=== PATIENT | male | born 1985 | race Caucasian/White ===

== ENCOUNTER 2019-10-15 10:39 | Emergency (ER) | payer OTHER, SELFPAY ==
[2019-10-15 10:39] VITALS: BP 133/84; PULSE 79; RESP 16; TEMP 36.9; O2SAT 96; BMI 24.0
--- NOTE | 2019-10-15 10:49 | ED.RN ---
PT ADMITS TO SNORTING HEROIN THIS AM AROUND 0830
--- NOTE | 2019-10-15 10:52 | RAD_ITS ---
STUDY: X-RAY CHEST REASON FOR EXAM: Male, 34 years old. OVERDOSE, BECAME UNRESPONSIVE AND GIVEN NARCAN TECHNIQUE: Single AP portable view of the chest. COMPARISON: Comparison is made with prior study dated 05/18/2013. FINDINGS: EKG electrodes are seen. The lungs are clear and expanded. There is no demonstrated pleural abnormality. Normal size heart. Normal mediastinum and nazanin. Normal visualized pulmonary arteries. Normal visualized aortic arch and descending thoracic aorta. Normal visualized thoracic spine. Normal visualized ribs, clavicles, and shoulders. There is no demonstrated abnormality of the visualized soft tissue structures of the upper abdomen. RAD/Chest 1 View (Portable) IMPRESSION: Normal x-ray examination of the chest. Electronically Signed: Cody Griffin, at 11:18 EDT , Service support ,
--- NOTE | 2019-10-15 10:57 | ED.RN ---
PER [facility] AT [facility], PT NEEDS DRUG TESTED
--- NOTE | 2019-10-15 11:42 | ED.DCSUM_ITS ---
- ER Visit Summary Date of Service: 10/15/19 Chief Complaint: Heroin overdose History of Present Illness: The patient is a 34 M who presents with heroin overdose that occurred today. Patient states he snorted heroin today at work at approximately 0830. Patient became unresponsive. EMS administered Narcan. Patient became awake and alert after this. Patient states he has a history of opiate dependence and is on Suboxone. Patient denies any fevers or chills. Patient denies any chest pain or shortness of breath. Patient denies any nausea or vomiting. Patient denies any other symptoms. Physical Examination: Vital signs are stable. Patient is afebrile. Patient is in no acute distress. Oral mucosa is pink and moist. Neck is supple. Trachea is midline. There is no JVD noted. Heart was regular rate and rhythm. Lungs are clear and equal bilaterally. Abdomen is soft. Bowel sounds are normal. There is no tenderness. There is no rebound or guarding noted. Skin is warm dry. Cranial nerves II through XII are intact. There are no focal motor or sensory deficits noted. Extremities are intact. There is no calf tenderness or edema. Test Results: Chest x-ray was obtained. There is no acute cardiopulmonary process. This was interpreted by the radiologist and reviewed by myself. Emergency Department Course and Treatment: Patient was observed here in the emergency department. Patient remained awake and alert. Patient was instructed to follow-up with his primary care physician or [facility] in 5 to 7 days. Patient understood and was agreeable with the plan. All questions were answ ered. Disposition: Discharge home Impression: Heroin overdose This note was generated with [employer] dictation software. It may contain incorrect words, spelling, and punctuation that were not noted in review of the chart prior to signing ED Disposition - Plan for ED Patient: Disposition: Home or Assisted Living Diagnosis: Heroin overdose Instructions: ED Overdose Opiate Referrals: [facility] [GROUP OF PHYSICIANS] - 5-[address] [facility] [STAFF PHYSICIAN] - 5-7 Days
[2019-10-15 11:46] VITALS: BP 129/80; PULSE 67; RESP 14; O2SAT 95
[2019-10-15 12:05] VITALS: BP 115/75; PULSE 62; RESP 12; O2SAT 95
--- NOTE | 2019-10-15 12:28 | CM.ED ---
Social Work Consult: Substance Abuse Informant: Self-Referral Chief Complaint: Patient overdosed on Heroine this morning. Marital/Social History: Single. Engaged to [employer] for the past 4 years. Living Situation: Lives with Adriana dawkins. Support/Resources: History of substance abuse supports, no active community resources. we need to get back into it per Adriana. Education/Employment: Full-time at [employer]. Denies any issues with comprehension/understanding. Abuse Issues: Did not assess Substance Abuse/use: Reports history of Heroine abuse and have been clean for the past 2 years. Patient states to have been working a program but to have stopped that over the past year. Adriana states he needs to start again. Patient denies any other substance abuse/use. Risk to Self/Others: Denies suicidal thoughts/plans/intent or history of. Assessment: Met with patient in room. Introduced self and social science manager role. Patient open to speaking with this social science manager. Patient presenting as tired and sleepy as evidenced by continuing to close eyes and defer to Adriana for answering questions. Patient states to want Adriana to remain in room while speaking with this social science manager. Patient is open to substance abuse resources. This social science manager encouraging patient to begin substance abuse program/supports and to continue with working the program to maintain sobriety. Patient voices plan and intent to establish with local substance abuse services. This social science manager providing patient with substance abuse resources. Patient voicing no further needs/concerns. Support provided. PLAN: Discharge to home with significant other. Linette VILLEGAS, ALEXSANDER
[2019-10-15 13:22] VITALS: BP 106/68; PULSE 40; RESP 11; O2SAT 94
[2019-10-15] MEDS: Naloxone 2 MG/2 ML Syringe IV (13:31)
[2019-10-15 14:14] VITALS: BP 131/77; PULSE 51; RESP 15; O2SAT 99
--- NOTE | 2019-10-15 14:26 | ED.RN ---
[facility]. PT IS LETHARGIC. T VOICED FRUSTRATION AND WAS UPSET HE WAS GIVEN NARCAN. NARCAN WAS EFFECTIVE AFTER ADMINISTRATION.
[2019-10-15 15:34] VITALS: BP 140/80; PULSE 60; RESP 18; O2SAT 99
== END 2019-10-15 15:35 | disposition home or self-care (01) ==
PROVIDERS: Emergency Provider Emergency Medicine
DX: T40.1X1A Poisoning by heroin, accidental (unintentional), initial encounter (principal); F11.20 Opioid dependence, uncomplicated
CPT/HCPCS: 71045; 99284; J7030

== ENCOUNTER 2024-03-13 13:42 | Inpatient (IN) | payer SELFPAY ==
[2024-03-13] VITALS (7 sets, daily range): BP systolic 108–132; BP diastolic 57–100; PULSE 55–70; RESP 15–20; TEMP 36.6–37.1; O2SAT 96–99; BMI 21.4; BMI 21.3
[2024-03-13] MEDS: Ondansetron ODT 4 MG Tablet PO (14:35)
[2024-03-13] MEDS: cloNIDine HCl 0.1 MG Tablet PO (14:35)
[2024-03-13 14:48] LABS: Absolute Neutrophil Count 14.5 X10^3/uL (2.0-7.7); Basophil# 0.05 X10^3/uL; Basophil% 0.3 % (0-1); Eosinophil# 0.01 X10^3/uL; Eosinophils% 0.1 % (0-5); Hematocrit 49.3 % (40-54); Hemoglobin 17.6 g/dL (13.0-16.5); Lymphocyte % 10.6 % (19-41); Mean Corp Hgb Conc 35.7 g/dL (32-36); Mean Corpuscular Hgb 29.9 pg (27.0-32.0); Mean Corpuscular Volume 83.7 fL (80-94); Mean Platelet Vol. 9.3 fl (6.2-12.0); Monocyte% 3.5 % (0-10); NRBC Flagged by Analyzer 0 % (0-5); Neutrophil # 14.49 X10^3/uL (2.7-7.7); Platelet Count 362 K/mm3 (150-450); RBC Distribution Width SD 36.4 fl (35.1-43.9); Red Blood Count 5.89 M/mm3 (4.6-6.2)
[2024-03-13 15:16] LABS: Alcohol, Blood (Medical)-Serum < 3.0 mg/dL
[2024-03-13 15:20] LABS: ALB/GLOB Ratio 0.9 RATIO (0.9-2.4); AST(SGOT) 25 U/L (15-37); Alanine Aminotransfer ALT/SGPT 45 U/L (16-61); Albumin, Serum 4.2 g/dL (3.2-5.0); Alkaline Phosphatase 100 U/L (45-117); Anion Gap 7 (5-15); BUN 14 mg/dL (7-18); BUN/Creat Ratio 14.7 RATIO (10-20); Calcium,Total 10.6 mg/dL (8.5-10.1); Chloride 104 mmol/L (98-107); Creatinine, Serum 0.95 mg/dL (0.70-1.30); EST Glomerular Filtration Rate 93 mL/min (>60); Est Glom Filt Rate - Afr Amer 113 mL/min (>60); Estimated Creatinine Clearance 99.12 ml/min; Globulin 4.9 g/dL (2.2-4.2); Glucose 118 mg/dL (74-106); Protein, Total 9.1 g/dL (6.4-8.2); Sodium Level 138 mmol/L (136-145)
--- NOTE | 2024-03-13 15:26 | EX.ED.SAOD ---
HPI History of Present Illness Chief Complaint: Substance Abuse Narrative Narrative: Patient is a 39-year-old male with history of opioid/heroin abuse. Presenting for request of opioid withdrawal/detox. Patient states he last used Saturday morning. He states he uses about a gram a day. States he uses both IV and snorts. He also admits to vaping and using THC products. He states he is using for least a year. He is currently complaining of having bodyaches, feeling freezing, nauseous, cramps and is yawning. He is asking for symptoms to help with his withdrawal. Denies any alcohol use. No other complaints or concerns at this time. Does report a history of hepatitis C. PFSH PFS Medical History IV drug abuse Allergy/AdvReac Type Severity Reaction Status Date / Time No Known Allergies Allergy Verified 03/13/24 16:49 Social History housing: house Smoking Status: Current every day smoker tobacco type: e-cigarettes ROS ROS ED Constitutional Constitutional ED: Reports chills and sweats; Denies fever(s) Cardiovascular Cardiovascular: Denies chest pain Respiratory/Chest Respiratory/Chest: Denies cough or dyspnea Gastrointestinal Gastrointestinal: Reports abdominal pain and nausea Musculoskeletal Musculoskeletal: Reports myalgias Integumentary Denies rash Psychiatric Psychiatric: Reports anxiety EXAM Physical Exam Const Vital Signs: 03/13/24 13:42 03/13/24 14:37 03/13/24 15:00 Temperature 97.9 F Temperature Source Temporal Pulse Rate 70 60 Respiratory Rate 18 Blood Pressure 132/100 H 114/81 H 119/79 Blood Pressure Mean 110 92 92 Pulse Ox 99 Oxygen Delivery Method Room Air 03/13/24 15:05 Temperature 98 F Temperature Source Pulse Rate 60 Respiratory Rate 18 Blood Pressure 119/79 Blood Pressure Mean 92 Pulse Ox 99 Oxygen Delivery Method Positive well nourished and well developed General Appearance ED: well developed and NAD HEENT Reports moist mucous membranes Eyes PERRL General Eye ED: Negative for scleral icterus Neck supple Chest Wall inspection of chest normal Resp normal respiratory effort and clear to auscultation bilaterally Cardio regular rate and regular rhythm Neuro oriented x3 Sensorium / Orientation: alert Motor Exam: Negative for general weakness Psych mental status grossly normal Mood & Affect: anxious Skin Lesions: no lesions Rashes: no rashes MDM MDM MDM Narrative Medical decision making narrative: Patient evaluated for request of heroin detox. Patient does appear to be withdrawing. Last used 2 days ago. Will obtain medical clearance and speak with hospitalist, Dr. Reynolds for admission. Patient is noted to have a leukocytosis of uncertain significance. Is hemodynamically stable in the emergency room. Will be monitored by hospitalist. Patient agreeable with admission. Lab Data Attestation: I reviewed the patient's lab results. Labs: Laboratory Results - last 24 hr 03/13/24 03/13/24 14:00 15:29 WBC 17.0 H RBC 5.89 Hgb 17.6 H Hct 49.3 MCV 83.7 MCH 29.9 MCHC 35.7 RDW Std Deviation 36.4 RDW Coeff of Ant 12.0 Plt Count 362 MPV 9.3 Immature Gran % (Auto) 0.500 Neut % (Auto) 85.0 H Lymph % (Auto) 10.6 L Green % (Auto) 3.5 Eos % (Auto) 0.1 Baso % (Auto) 0.3 Absolute Neuts (auto) 14.5 H Absolute Lymphs (auto) 1.80 Nucleated RBC % 0 Sodium 138 Potassium 4.0 Chloride 104 Carbon Dioxide 27.0 Anion Gap 7 BUN 14 Creatinine 0.95 Estim Creat Clear Calc 99.12 Est GFR (MDRD) Af Amer 113 Est GFR (MDRD) Non-Af 93 BUN/Creatinine Ratio 14.7 Glucose 118 H Calcium 10.6 H Total Bilirubin 0.60 AST 25 ALT 45 Alkaline Phosphatase 100 Total Protein 9.1 H Albumin 4.2 Globulin 4.9 H Albumin/Globulin Ratio 0.9 Urine Opiates Screen NEGATIVE Urine Methadone Screen NEGATIVE Ur Barbiturates Screen NEGATIVE Ur Phencyclidine Scrn NEGATIVE Ur Amphetamines Screen NEGATIVE MDMA (Ecstasy) Screen NEGATIVE U Benzodiazepines Scrn NEGATIVE Urine Cocaine Screen NEGATIVE U Cannabinoids Screen POSITIVE H Ur Drug Screen Comment Ethyl Alcohol < 3.0 Discharge Plan Dx/Rx/DC Orders Clinical Impression: Opioid use disorder Disposition Disposition: Acute Care Hospital [facility] Discharge Date/Time: 03/13/24 16:05
--- NOTE | 2024-03-13 15:37 | HP.PCM.HOS_ITS ---
HPI - General General Date of Admission: 03/13/24 Date of Service: 03/13/24 Chief Complaint: Opioid detox HPI Narrative CLYDE TREVIZO, is a 39 M with history of opioid use disorder presented [facility] ED 03/09/2024 for opioid detox. In the ED patient with white count of 17 and hemoglobin of 17 and was just generally feeling unwell and already in withdrawal. Given clonidine and ondansetron and hospitalist contacted for admission. Patient evaluated bedside. He reports using fentanyl and heroin off and on for years with his last use 2 days ago. Since that time he has been having abdominal discomfort, diarrhea, chills, nausea and feels generally unwell. Does note that he vapes and patient additionally uses THC, denies any amphetamines or cocaine, denies regular alcohol use. Patient received clonidine and Zofran in the ED with only mild improvement and reports he is just very uncomfortable. Reports a little bit of cough with phlegm but denies any other specific symptoms concerning for underlying infectious etiology. [facility] Medical History IV drug abuse Allergy/AdvReac Type Severity Reaction Status Date / Time ketchup AdvReac Other Verified 03/13/24 13:42 Social History (Updated 03/13/24 @ 13:51 by Kiley Maza) housing: house Smoking Status: Current every day smoker tobacco type: cigarettes ROS ROS Narrative General: Chills HENT: Headaches EYES: Denies changes in vision Resp: Little bit of a cough Cardiac: Denies chest pain GI: Diarrhea and abdominal cramping : Some decreased urination and decreased p.o. intake Extremity: Denies swelling MSK: Denies weakness, some generalized aches Neuro: Denies any numbness/tingling Heme: Denies any bleeding or bruising Skin: Denies rashes Psychiatric: Feeling anxious Vital Signs Vital Signs Vital Signs: 03/13/24 13:42 03/13/24 14:37 03/13/24 15:00 Temperature 97.9 F Temperature Source Temporal Pulse Rate 70 60 Respiratory Rate 18 Blood Pressure 132/100 H 114/81 H 119/79 Blood Pressure Mean 110 92 92 Pulse Ox 99 Oxygen Delivery Method Room Air 03/13/24 15:05 Temperature 98 F Temperature Source Pulse Rate 60 Respiratory Rate 18 Blood Pressure 119/79 Blood Pressure Mean 92 Pulse Ox 99 Oxygen Delivery Method Weight Weight: 67.8 kg Body Mass Index (BMI) 21.4 Physical Exam Narrative General: Alert, oriented, under covers and appears uncomfortable HEENT: Atraumatic, normocephalic Eyes: Anicteric, normal conjunctiva, extraocular movements grossly intact Neck: Supple Respiratory: Clear to auscultation bilaterally, normal respiratory effort Cardiovascular: Regular rate GI: Soft, nontender, nondistended Extremities: No edema Musculoskeletal: Moving all extremities Neuro: No overt focal neurological deficits Skin: No rashes appreciated Psych: Overall cooperative but is anxious Results Lab / Micro Data 03/13/24 14:00 03/13/24 14:00 Labs: Laboratory Results - last 24 hr 03/13/24 14:00: WBC 17.0 H, RBC 5.89, Hgb 17.6 H, Hct 49.3, MCV 83.7, MCH 29.9, MCHC 35.7, RDW Std Deviation 36.4, RDW Coeff of Ant 12.0, Plt Count 362, MPV 9.3, Immature Gran % (Auto) 0.500, Neut % (Auto) 85.0 H, Lymph % (Auto) 10.6 L, [place] % (Auto) 3.5, Eos % (Auto) 0.1, Baso % (Auto) 0.3, Absolute Neuts (auto) 14.5 H, Absolute Lymphs (auto) 1.80, Nucleated RBC % 0, Sodium 138, Potassium 4.0, Chloride 104, Carbon Dioxide 27.0, Anion Gap 7, BUN 14, Creatinine 0.95, Estim Creat Clear Calc 99.12, Est GFR (MDRD) Af Amer 113, Est GFR (MDRD) Non-Af 93, BUN/Creatinine Ratio 14.7, Glucose 118 H, Calcium 10.6 H, Total Bilirubin 0.60, AST 25, ALT 45, Alkaline Phosphatase 100, Total Protein 9.1 H, Albumin 4.2, Globulin 4.9 H, Albumin/Globulin Ratio 0.9, Ethyl Alcohol < 3.0 Assessment & Plan Assessment/Plan (1) Opioid use disorder: PLAN: Plan #Acute opiate withdrawal - Subutex taper initiated - As needed Tylenol, ibuprofen, bowel regimen, gabapentin, Bentyl, Vistaril, methocarbamol, clonidine - As needed trazodone nightly - As needed antiemetics -Once patient begins to clinically improve will discuss further discharge planning # Elevated white blood cell count -Patient with elevated white blood cell count but also has elevated hemoglobin and calcium and has had poor p.o. intake with diarrhea and pillars volume depleted -Will give IV fluids and recheck labs in the a.m. -Has slight cough without significant sputum production and has no other indication of any focal infectious complaints but continue to monitor and workup as appropriate #Tobacco use -Advise cessation -Nicotine replacement available if desired #DVT ppx: Low risk, ambulatory Ingrid Reynolds MD Charges/Coding Visit Charges Inpatient E&M: 77913 Init Hosp L1
--- NOTE | 2024-03-13 15:56 | CM.ED ---
Social Work SW entered patients room, introduced self and reason for visit. Patient stated he came to the ER because he has not used for a few days, was feeling very sick and was ready to be clean. Patient stated his mom was also currently in the [facility] program. No further questions or concerns at this time Beti Rock, PHOTORESIST PRINTER, MANAGER EDUCATIONAL
[2024-03-13 15:57] LABS: Amphetamine Urine VISTA NEGATIVE (<1000 ng/mL); Barbiturate Urine VISTA NEGATIVE (< 200 ng/mL); Benzodiazepine Urine VISTA NEGATIVE (< 200 ng/mL); Cocaine Urine VISTA NEGATIVE (< 300 ng/mL); Ecstacy Urine VISTA NEGATIVE (< 500 ng/mL); Methadone Urine VISTA NEGATIVE (< 300 ng/mL); PCP Urine VISTA NEGATIVE (< 25 ng/mL); THC Urine VISTA POSITIVE (< 50 ng/mL); Vista UDS pH Range 8
[2024-03-13] MEDS: hydrOXYzine PAM 25 MG Capsule 50 MG PO (16:42)
[2024-03-13] MEDS: Acetaminophen 325 MG Tablet 650 MG PO (16:43)
[2024-03-13] MEDS: Methocarbamol 750 MG Tablet PO (16:43)
[2024-03-13] MEDS: Gabapentin 300 MG Capsule PO (16:43)
[2024-03-13] MEDS: Buprenorphine HCl 2 MG TAB.SUBL SL (17:01)
[2024-03-13] MEDS: Loperamide 2 MG Capsule PO (22:28)
[2024-03-13] MEDS: traZODone 100 MG Tablet PO (22:28)
[2024-03-14] MEDS: Methocarbamol 750 MG Tablet PO ×2 (00:45→09:35)
[2024-03-14] MEDS: Gabapentin 300 MG Capsule PO ×2 (00:45→11:49)
[2024-03-14] MEDS: Buprenorphine HCl 2 MG TAB.SUBL SL ×3 (01:03→16:46)
[2024-03-14 05:00] VITALS: BP 117/74; PULSE 77; RESP 15; TEMP 37.1; O2SAT 98
[2024-03-14 06:48] LABS: Absolute Lymphocyte Count 2.61 X10^3/uL (0.83-4.51); Absolute Neutrophil Count 8.3 X10^3/uL (2.0-7.7); Basophil# 0.02 X10^3/uL; Basophil% 0.2 % (0-1); Eosinophil# 0.03 X10^3/uL; Eosinophils% 0.3 % (0-5); Hematocrit 46.3 % (40-54); Hemoglobin 15.7 g/dL (13.0-16.5); Lymphocyte # 2.61 X10^3/ul (0.83-4.51); Lymphocyte % 22.4 % (19-41); Mean Corp Hgb Conc 33.9 g/dL (32-36); Mean Corpuscular Volume 85.4 fL (80-94); Monocyte# 0.68 X10^3/uL; Monocyte% 5.8 % (0-10); NRBC Flagged by Analyzer 0 % (0-5); Neutrophil # 8.25 X10^3/uL (2.7-7.7); Neutrophil % 70.9 % (47-70); POSITIVE COUNT YES; RBC Distribution Width CV 12.1 % (11.6-14.6); RBC Distribution Width SD 37.7 fl (35.1-43.9); Red Blood Count 5.42 M/mm3 (4.6-6.2); White Blood Count 11.6 K/mm3 (4.4-11.0)
[2024-03-14 06:57] LABS: International Normalized Ratio 1.3; Prothrombin Time (Protime)PT. 16.1 SECONDS (11.7-14.9)
[2024-03-14 07:16] LABS: ALB/GLOB Ratio 0.9 RATIO (0.9-2.4); AST(SGOT) 19 U/L (15-37); Alanine Aminotransfer ALT/SGPT 39 U/L (16-61); Albumin, Serum 3.5 g/dL (3.2-5.0); Alkaline Phosphatase 92 U/L (45-117); Anion Gap 9 (5-15); BUN 15 mg/dL (7-18); BUN/Creat Ratio 18.2 RATIO (10-20); Calcium,Total 9.7 mg/dL (8.5-10.1); Chloride 103 mmol/L (98-107); Creatinine, Serum 0.82 mg/dL (0.70-1.30); EST Glomerular Filtration Rate 110 mL/min (>60); Est Glom Filt Rate - Afr Amer 133 mL/min (>60); Estimated Creatinine Clearance 117.55 ml/min; Glucose 110 mg/dL (74-106); Potassium 4.4 mmol/L (3.5-5.1); Protein, Total 7.5 g/dL (6.4-8.2); Sodium Level 137 mmol/L (136-145)
--- NOTE | 2024-03-14 07:46 | PN.HOSP_ITS ---
Reason for Visit Reason for Visit: Diagnoses Opioid use, unspecified, uncomplicated (03/13/24) Subjective Subjective Feeling better. Stopped using opiates 5 days prior to arrival. Does not plan to follow up with any one for counseling, but may follow up with someone for outpt Suboxone. Objective Data Objective Data Vital Signs: Vital Signs Temp Pulse Resp BP Pulse Ox O2 Del Method 37.1 C 77 15 117/74 98 Room Air 03/14/24 05:00 03/14/24 05:00 03/14/24 05:00 03/14/24 05:00 03/14/24 05:00 03/14/24 05:00 Oxygen Delivery Method Room Air Weight: 69.4 kg Body Mass Index (BMI) 21.3 Lab / Micro Data 03/14/24 06:10 03/14/24 06:10 Labs: Laboratory Results - last 24 hr 03/13/24 14:00: WBC 17.0 H, RBC 5.89, Hgb 17.6 H, Hct 49.3, MCV 83.7, MCH 29.9, MCHC 35.7, RDW Std Deviation 36.4, RDW Coeff of Ant 12.0, Plt Count 362, MPV 9.3, Immature Gran % (Auto) 0.500, Neut % (Auto) 85.0 H, Lymph % (Auto) 10.6 L, [place] % (Auto) 3.5, Eos % (Auto) 0.1, Baso % (Auto) 0.3, Absolute Neuts (auto) 14.5 H, Absolute Lymphs (auto) 1.80, Nucleated RBC % 0, Sodium 138, Potassium 4.0, Chloride 104, Carbon Dioxide 27.0, Anion Gap 7, BUN 14, Creatinine 0.95, Estim Creat Clear Calc 99.12, Est GFR (MDRD) Af Amer 113, Est GFR (MDRD) Non-Af 93, BUN/Creatinine Ratio 14.7, Glucose 118 H, Calcium 10.6 H, Total Bilirubin 0.60, AST 25, ALT 45, Alkaline Phosphatase 100, Total Protein 9.1 H, Albumin 4.2, Globulin 4.9 H, Albumin/Globulin Ratio 0.9, Ethyl Alcohol < 3.0 03/13/24 15:29: Urine Opiates Screen NEGATIVE, Urine Methadone Screen NEGATIVE, Ur Barbiturates Screen NEGATIVE, Ur Phencyclidine Scrn NEGATIVE, Ur Amphetamines Screen NEGATIVE, MDMA (Ecstasy) Screen NEGATIVE, U Benzodiazepines Scrn NEGATIVE, Urine Cocaine Screen NEGATIVE, U Cannabinoids Screen POSITIVE H, Ur Drug Screen Comment 03/14/24 06:10: PT 16.1 H, INR 1.3, Sodium 137, Potassium 4.4, Chloride 103, Carbon Dioxide 25.0, Anion Gap 9, BUN 15, Creatinine 0.82, Estim Creat Clear Calc 117.55, Est GFR (MDRD) Af Amer 133, Est GFR (MDRD) Non-Af 110, BUN/Creatinine Ratio 18.2, Glucose 110 H, Calcium 9.7, Total Bilirubin 0.90, AST 19, ALT 39, Alkaline Phosphatase 92, Total Protein 7.5, Albumin 3.5, Globulin 4.0, Albumin/Globulin Ratio 0.9 Physical Exam Const alert and no apparent distress Constitutional Narrative: lying in bed. non-toxic. HEENT head/scalp atraumatic and moist oral mucous membranes Assessment & Plan Assessment/Plan (1) Opioid use disorder: PLAN: Acute opiate withdrawal. On buprenorphine taper. Pt declines further outpt therapy. PLAN: Plan Leukocytosis: no clear s/s of infection. Charges/Coding Visit Charges Inpatient E&M: 49199 Subs Hosp L1
[2024-03-14 07:58] LABS: Differential Indicated SCAN CRITERIA MET
[2024-03-14 08:27] LABS: Differential Comment SCANNED
[2024-03-14 08:28] LABS: Platelet Estimate ADEQUATE (ADEQ); Platelet Morphology CLUMPED; Red Cell Morphology NORM C+C NORMAL (NORM C&C)
[2024-03-14] MEDS: Ensure Plus High Protein 120 ML LIQUID PO ×2 (09:20→11:49)
[2024-03-14 09:21] VITALS: PULSE 60
[2024-03-14] MEDS: Acetaminophen 325 MG Tablet 650 MG PO ×2 (09:34→19:58)
[2024-03-14] MEDS: Dicyclomine 10 MG Capsule 20 MG PO ×2 (09:34→16:46)
--- NOTE | 2024-03-14 10:55 | ADDICTION ---
This signwriter met with PT to conduct ASAM, MSE, and DUDIT assessments and to plan for d/c. PT A+Ox4 and presented as irritable. PT demonstrated limited cooperation, declining to respond to some inquiries and declining coordination of care. PT presents as poor historian AEB inconsistent details regarding substance use history. PT declined discharge planning and states I will do it on my own. PT reports a Hx of substance use treatment and 12 step engagement, though reinforced that he is not interested in substance use treatment services at this time. PT declined Narcan kit and information, stating I know it already. Assessments completed and placed in PT's chart.
--- NOTE | 2024-03-14 12:35 | CASEMGMT ---
Social Work SW met w/pt in room as pt is listed as not having insurance. SW provided to pt resources including information on [facility] assist, [facility] Resources, prescription assistance programs, and a Medicaid application. SW remains available for any additional resource needs. AMY Tapia
[2024-03-14 13:29] VITALS: BP 115/74; PULSE 56; RESP 18; TEMP 37.1; O2SAT 96
[2024-03-14] MEDS: hydrOXYzine PAM 25 MG Capsule 50 MG PO ×2 (13:32→19:59)
[2024-03-14] MEDS: Ondansetron 8 MG Tablet PO (16:47)
[2024-03-14 19:49] VITALS: BP 124/85; PULSE 71; RESP 18; TEMP 37.1; O2SAT 96
[2024-03-14] MEDS: traZODone 100 MG Tablet PO (21:06)
[2024-03-15 01:49] VITALS: BP 121/77; PULSE 60; RESP 16; TEMP 36.5; O2SAT 96
[2024-03-15] MEDS: Buprenorphine HCl 2 MG TAB.SUBL SL ×3 (01:51→16:41)
[2024-03-15] MEDS: Methocarbamol 750 MG Tablet PO (01:52)
--- NOTE | 2024-03-15 07:18 | PN.HOSP_ITS ---
Reason for Visit Reason for Visit: Diagnoses Opioid use, unspecified, uncomplicated (03/13/24) Subjective Subjective Appetite is better. No further nausea. But now having restless legs, which kept him up last night. Objective Data Objective Data Vital Signs: Vital Signs Temp Pulse Resp BP Pulse Ox O2 Del Method 36.5 C L 60 16 121/77 H 96 Room Air 03/15/24 01:49 03/15/24 01:49 03/15/24 01:49 03/15/24 01:49 03/15/24 01:49 03/15/24 01:49 Oxygen Delivery Method Room Air Weight: 69.4 kg Body Mass Index (BMI) 21.3 Intake & Output: Intake and Output for Last 24 Hours 03/13/24 03/14/24 03/15/24 23:59 23:59 23:59 Intake Total 500 / 500 300 / 300 Balance 500 / 500 300 / 300 Lab / Micro Data 03/14/24 06:10 03/14/24 06:10 Labs: Laboratory Results - last 24 hr 03/14/24 06:10: WBC 11.6 H, RBC 5.42, Hgb 15.7, Hct 46.3, MCV 85.4, MCH 29.0, M CHC 33.9 D, RDW Std Deviation 37.7, RDW Coeff of Ant 12.1, Plt Count , MPV 10.0, Immature Gran % (Auto) 0.400, Neut % (Auto) 70.9 H, Lymph % (Auto) 22.4, [place] % (Auto) 5.8, Eos % (Auto) 0.3, Baso % (Auto) 0.2, Absolute Neuts (auto) 8.3 H, Absolute Lymphs (auto) 2.61, Nucleated RBC % 0, Differential Comment SCANNED, Platelet Estimate ADEQUATE, Plt Morphology Comment CLUMPED, RBC Morphology NORM C+C Physical Exam Const alert and no apparent distress Constitutional Narrative: nontoxic. lying in bed. Assessment & Plan Assessment/Plan (1) Opioid use disorder: PLAN: Acute opiate withdrawal. On buprenorphine taper. Complete treatment on 03/16 and discharge home. Pt declines further outpt therapy. He will go home with no plans for follow up. He will need to initiate follow up if desired. PLAN: Plan Leukocytosis: no clear s/s of infection. Charges/Coding Visit Charges Inpatient E&M: 13331 Subs Hosp L1
[2024-03-15 08:59] VITALS: PULSE 80
[2024-03-15 09:02] VITALS: BP 108/61; PULSE 72; RESP 20; TEMP 36.8; O2SAT 96
[2024-03-15] MEDS: Dicyclomine 10 MG Capsule 20 MG PO (09:08)
[2024-03-15 14:02] VITALS: BP 115/74; PULSE 74; RESP 16; TEMP 37.1; O2SAT 95
--- NOTE | 2024-03-15 18:29 | NURSING ---
talked with Juan Francisco from security to come take information on missing phone. unable to locate phone in the room, none was in tote, locked drawers. pt states was a [employer] pixel 6. states when he was in the ER he was detoxing bad and left belongings on the chair. states ER staff x2 gathered his belongings up and when he arrived to the unit they were placed in the bin so he didn't see what he had. Aware reached out to SAM Camacho admitting nurse. aware per Janice pt verbalized he had a phone upon admission but she did not see the phone, items were already in the tote.
--- NOTE | 2024-03-15 19:34 | PCM.DC.SUM ---
Providers Date of Admission: 03/13/24 Primary Care Physician: Haydee Primary Care Phys Reason For Visit: OPIOID DEPENDENCY W WITHDRAWAL Diagnosis Discharge Diagnosis (1) Opioid use disorder: Status: Acute Code(s): F11.90 - Opioid use, unspecified, uncomplicated Plan: Acute opiate withdrawal. On buprenorphine taper. Complete treatment on 03/16 and discharge home. Pt declines further outpt therapy. He will go home with no plans for follow up. He will need to initiate follow up if desired. Plan Leukocytosis: no clear s/s of infection. Hospital Course Operations None Procedures None Summary of Care Provided Hospital Course: Patient presented seeking treatment for opiate withdrawal. He last used 5 days prior to presentation, but was still sick so he presented to the ED. He was started on buprenorphine taper. He did well. He decline outpatient addiction services. Plan was for him to complete the Subutext taper and discharge tomorrow. He left [facility]. Weight / BMI Weight Weight: 69.4 kg Body Mass Index (BMI) 21.3 ABG / Lab / Microbiology Data 03/14/24 06:10 03/14/24 06:10 D/C Instructions Discharge Diet: No restrictions DC O2, CPAP, BIPAP Needs Home O2 Discharge instructions: No Meaningful Use Info Meaningful Use Meaningful Use Diagnoses (Choose all that apply): None applicable Ischemic Stroke Statin Dosing Therapy Reference: STATIN DOSE THERAPY REFERENCE: * Patients > 75 years receive moderate or high dose statin therapy. * Patients 75 years or YOUNGER should receive HIGH intensity statin dose unless contraindicated. You will be required to document reason for non-treatment if statin daily dose does not meet guidelines. HIGH DOSE STATIN THERAPY DAILY Atorvastatin > than or = to 40 mg Rosuvastatin > than or = to 20 mg Amlodipine + Atorvastatin > than or = to 2.5/40 mg Ezetimibe + Simvastatin 10/80 mg Simvastatin 80mg Discharge Plan Admission Admit Date/Time: 03/13/24 15:37 Primary Reason for Your Visit: opiate withdrawal. Attending Provider: Juan Lockhart Primary Care Provider: Care Physician,No Primary Consulting Providers: Ingrid Reynolds Discharge Orders/Prescriptions Referrals / Follow Up: Care Physician,No Primary [Primary Care Provider] - Disposition Disposition (needs filled in before D/C Order can be placed): Against Medical Advice Charges/Coding Visit Charges Inpatient E&M: 61139 Disch Hosp
== END 2024-03-15 18:40 | disposition left against medical advice (07) | DRG 894 ==
LOC: ED 14:42 → MS3 03-14 07:07
PROVIDERS: Admitting Provider Internal Medicine; Emergency Provider Emergency Medicine
DX: F11.23 Opioid dependence with withdrawal (principal); D72.829 Elevated white blood cell count, unspecified; F12.90 Cannabis use, unspecified, uncomplicated; F17.210 Nicotine dependence, cigarettes, uncomplicated
CPT/HCPCS: 36415; 80053; 80307; 82077; 85025; 85610; 97802; 99284; 99406